=== PATIENT | female | born 1985 | race Caucasian/White ===

== ENCOUNTER 2022-10-11 05:50 | Emergency (ER) | payer SELFPAY ==
[~2022-10-11] VITALS: Ht 170.2 cm; Wt 74.1 kg
[2022-10-11 07:06] VITALS: BP 103/57
[2022-10-11] MEDS ORDERED: acetaminophen 325mg tablet PO ONE (07:35)
[2022-10-11] MEDS ORDERED: diazepam inj 5 MG/ML inj. IM ONE (07:35)
[2022-10-11] MEDS ORDERED: LIDOcaine 5% patch TP SCH (08:00)
== END 2022-10-11 15:29 | disposition left against medical advice (07) ==
LOC: ER 05:53
DX: M54.59 Other low back pain (principal); R20.0 Anesthesia of skin; Z88.0 Allergy status to penicillin; Z79.899 Other long term (current) drug therapy
CPT/HCPCS: 99281